=== PATIENT | male | born 1945 | race Caucasian/White ===

== ENCOUNTER 2017-02-12 15:40 | Emergency (ER) | payer MEDICARE, OTHER ==
[~2017-02-12 15:40] MED LIST: ASAB PO; CORDARONE PO; COREGCR40 PO; DIOVAN40 MG PO; LIPITOR20 PO
[2017-02-12 16:50] LABS: ASCORBIC ACID (UR NOT ORDER) 40 (NEG); BILIRUBIN, URINE NEGATIVE (NEG); ER URINALYSIS TAT 0 Hrs 20 Mins; KETONE, URINE 20 MG/DL (NEG); LEUKOCYTE ESTERASE(NOT OR TRACE (NEG); NITRITE (URINE) POS (NEG); WBC (NOT ORDERED) (RFLEX) 11 (0-5)
== END 2017-02-12 18:00 | disposition home or self-care (01) ==
LOC: ER 15:40
PROVIDERS: Physician Assistant
DX: K62.89 Other specified diseases of anus and rectum (principal); R30.0 Dysuria; Z95.0 Presence of cardiac pacemaker; Z85.118 Personal history of other malignant neoplasm of bronchus and lung; Z79.82 Long term (current) use of aspirin; Z79.899 Other long term (current) drug therapy
CPT/HCPCS: 72192; 81001; 96372; 99284; A9270-GY; J1170